=== PATIENT | male | born 1990 | race Native Hawaiian/Other Pacific Islander ===

== ENCOUNTER 2021-02-24 09:00 | Outpatient (CLI) | payer OTHER | END 2021-02-24 19:07 | disposition home or self-care (01) | LOC: RAD 09:00 | PROVIDERS: ATTEND Internal Medicine | DX: Q25.5 Atresia of pulmonary artery (principal); Q21.0 Ventricular septal defect; R00.2 Palpitations; F41.8 Other specified anxiety disorders; F32.9 Major depressive disorder, single episode, unspecified; F90.9 Attention-deficit hyperactivity disorder, unspecified type; G43.909 Migraine, unspecified, not intractable, without status migrainosus ==